=== PATIENT | male | born 1995 | race Hispanic/Latino ===

== ENCOUNTER → 2019-09-20 | Day surgery (SDC) | payer BC, OTHER ==
[~2019-09-20] MED LIST: ACETAMINOPHEN 1000 MG/100 ML 100 ML IV ONE; ACETAMINOPHEN/CODEINE 300MG - 30MG TAB ONE; CEFAZOLIN SOD 1 GM/NS 50ML 100 ML IV ONE; KETOROLAC TROMETHAMINE 30 MG/ML VIAL ONE; LIDOCAINE 1% W/EPINEPHRINE 20 ML VIAL ONE; LIDOCAINE HCL 2% LOCAL INJ 5 ML SDV VIAL INJ ONE; LORAZEPAM INJ 2 MG/ML VIAL ONE; MEPERIDINE HCL INJ 25 MG/ML VIAL ONE; METOCLOPRAMIDE HCL 10 MG/2ML VIAL ONE; MIDAZOLAM HCL 2 MG/2 ML VIAL ONE; ONDANSETRON HCL INJ 2MG/ML 2ML 2 MG/ML VIAL ONE; PROPOFOL IV EMULSION 10 MG/ML 20 ML VIAL ONE; SEVOFLURANE INHAL SOLN 250 ML PEN BTL ONE
[2019-09-20 13:10] VITALS: BP 146/95
--- NOTE | 2019-09-21 20:45 | Operative Report ---
DATE OF PROCEDURE: 09/20/2019 SURGEON: Zachariah Saldana MD PREOPERATIVE DIAGNOSIS: Right knee lateral meniscus tear. 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 OPERATION/PROCEDURE PERFORMED: The patient underwent right knee arthroscopy, right knee examination under anesthesia, right knee arthroscopic partial lateral meniscectomy, right knee arthroscopic chondroplasty of the lateral femoral condyle, and lateral tibial plateau. ANESTHESIA: General endotracheal intubation anesthesia. IV FLUIDS: Per the anesthesia record. BLOOD LOSS: Minimal. COMPLICATIONS: None. DESCRIPTION OF PATIENT'S OPERATIVE PROCEDURE: Mr. Seo was taken to the operating room and placed in supine position on the operating table. Following induction of general anesthesia as well as endotracheal intubation, the patient's right lower extremity was examined under anesthesia. He was found to have a minimal effusion of the knee joint. There was no gross abnormality about the knee. The patient's lower extremity was prepped and draped in standard surgical fashion. A 2-port technique was used to provide this patient arthroscopic evaluation of the knee joint. Examination of the suprapatellar pouch and medial and lateral gutters found no evidence of loose bodies. There was no significant evidence of chondromalacia of the patellofemoral joint. Scope was carried through medial compartment. Examination of the medial compartment demonstrated no significant pathology. The scope was then advanced to the intercondylar notch and the anterior cruciate ligament was identified and found to be intact. The scope was entered into the lateral compartment and the patient was found to have a peripheral rim tear of the lateral meniscus. The injury was debrided and attempts were performed to stabilize the meniscus using an all-inside technique. The meniscus tissue, however, would not hold the suture. The tissue was therefore debrided and a partial lateral meniscectomy was performed. The patient was also found to have chondromalacia of the lateral femoral condyle and lateral tibial plateau. Chondroplasties of these surfaces were performed. The knee was then deflated with sterile normal saline. The portal sites were closed using 4-0 nylon suture. The portal sites as well as the knee itself were then injected with 0.5% Marcaine with epinephrine. Sterile dressings were applied and the patient was then awakened and taken to postanesthesia care unit in stable condition. MD [id number] Hernandez/DEVEN /[id number]
== END | disposition home or self-care (01) ==
LOC: OR 07:28
PROVIDERS: ATTEND Specialist
DX: S83.251A Bucket-handle tear of lateral meniscus, current injury, right knee, initial encounter (principal); M94.261 Chondromalacia, right knee; X58.XXXA Exposure to other specified factors, initial encounter; Z01.812 Encounter for preprocedural laboratory examination; Z11.59 Encounter for screening for other viral diseases; Z68.34 Body mass index [BMI] 34.0-34.9, adult
CPT/HCPCS: 29881; 87635; J0131; J0690; J1885; J2001; J2175; J2405; J2704; J2765; J2060; J2250